=== PATIENT | male | born 1980 | race Caucasian/White ===

== ENCOUNTER → 2024-07-27 | Outpatient (CLI) | payer BC ==
[2024-07-27 09:32] LABS: ALBUMIN 4.6 g/dL (3.5-5.0)
[2024-07-27 09:33] LABS: CALCIUM 9.5 mg/dL (8.3-10.5)
[2024-07-27 09:35] LABS: TOTAL PROTEIN 7.5 g/dL (6.4-8.3)
[2024-07-27 09:37] LABS: TOTAL BILIRUBIN 1.3 mg/dL (0.2-1.2)
[2024-07-27 10:54] LABS: HEMATOCRIT 47.8 % (42.0-52.0); HEMOGLOBIN 15.4 g/dL (13.5-18.0); MEAN PLATELET VOLUME 9.7 fl (7.4-10.4); RED BLOOD COUNT 5.44 M/mm3 (4.20-5.60); RED CELL DISTRIBUTION WIDTH 11.8 % (11.5-14.5); WHITE BLOOD COUNT 4.5 K/mm3 (4.8-10.8)
== END ==
LOC: LAB 09:09
PROVIDERS: Family Medicine
DX: Z13.1 Encounter for screening for diabetes mellitus (principal); Z13.220 Encounter for screening for lipoid disorders; R53.83 Other fatigue